=== PATIENT | female | born 1990 ===

== ENCOUNTER 2020-12-27 12:00 | Inpatient (IN) | payer OTHER ==
[~2020-12-27] VITALS: Ht 154.9 cm; Wt 79.4 kg
[2021-01-07] MEDS ORDERED: PRENATABS RX T1 EACH PO (23:16)
== END 2021-01-10 11:28 | disposition home or self-care (01) | DRG 768 ==
LOC: SURG-SUITE 01-07 15:05 → LDR 01-07 15:05 → SURG-SUITE 01-08 12:02 → SURH 01-11 12:00
PROVIDERS: ADMIT Obstetrics & Gynecology Maternal & Fetal Medicine; ATTEND Obstetrics & Gynecology Maternal & Fetal Medicine
PROC: 3E0P7VZ Introduction of Hormone into Female Reproductive, Via Natural or Artificial Opening (ICD-10-PCS; 2021-01-07)
PROC: 4A1HXFZ Monitoring of Products of Conception, Cardiac Rhythm, External Approach (ICD-10-PCS; 2021-01-07)
PROC: 10E0XZZ Delivery of Products of Conception, External Approach (ICD-10-PCS; principal; 2021-01-08)
PROC: 0DQP0ZZ Repair Rectum, Open Approach (ICD-10-PCS; 2021-01-08)
PROC: 0W8NXZZ Division of Female Perineum, External Approach (ICD-10-PCS; 2021-01-08)
PROC: 10907ZC Drainage of Amniotic Fluid, Therapeutic from Products of Conception, Via Natural or Artificial Opening (ICD-10-PCS; 2021-01-08)
PROC: 3E033VJ Introduction of Other Hormone into Peripheral Vein, Percutaneous Approach (ICD-10-PCS; 2021-01-08)
DX: O36.63X0 Maternal care for excessive fetal growth, third trimester, not applicable or unspecified (principal); Z37.0 Single live birth; O70.3 Fourth degree perineal laceration during delivery; O99.824 Streptococcus B carrier state complicating childbirth; Z3A.39 39 weeks gestation of pregnancy

== ENCOUNTER 2020-12-30 10:57 | Outpatient (CLI) | payer OTHER | END 2020-12-30 11:58 | disposition home or self-care (01) | LOC: NST 10:57 | PROVIDERS: ATTEND Obstetrics & Gynecology | DX: Z34.83 Encounter for supervision of other normal pregnancy, third trimester (principal) ==

== ENCOUNTER 2021-01-03 14:27 | Outpatient (CLI) | payer OTHER | END 2021-01-03 15:44 | disposition home or self-care (01) | LOC: NST 14:27 | PROVIDERS: ATTEND Obstetrics & Gynecology | DX: Z34.83 Encounter for supervision of other normal pregnancy, third trimester (principal) ==

== ENCOUNTER 2022-11-18 11:51 | Inpatient (IN) | payer OTHER ==
[~2022-11-18] VITALS: Ht 154.9 cm; Wt 82.1 kg
[~2022-11-18 11:51] MED LIST: PRENATABS RX T1 EACH PO
== END 2022-12-04 13:22 | disposition home or self-care (01) | DRG 807 ==
LOC: LDR 12-02 08:14 → OB/GYN 12-02 18:10
PROVIDERS: Obstetrics & Gynecology Gynecology; ADMIT Obstetrics & Gynecology; ATTEND Obstetrics & Gynecology
PROC: 10E0XZZ Delivery of Products of Conception, External Approach (ICD-10-PCS; principal; 2022-12-02)
PROC: 0W8NXZZ Division of Female Perineum, External Approach (ICD-10-PCS; 2022-12-02)
PROC: 4A1HXCZ Monitoring of Products of Conception, Cardiac Rate, External Approach (ICD-10-PCS; 2022-12-02)
DX: O80 Encounter for full-term uncomplicated delivery (principal); Z37.0 Single live birth; Z3A.39 39 weeks gestation of pregnancy; Z20.822 Contact with and (suspected) exposure to COVID-19

== ENCOUNTER 2022-11-27 09:51 | Outpatient (CLI) | payer OTHER | END 2022-11-27 11:55 | disposition home or self-care (01) | LOC: NST 09:51 | PROVIDERS: ATTEND Obstetrics & Gynecology Maternal & Fetal Medicine | DX: Z34.83 Encounter for supervision of other normal pregnancy, third trimester (principal) ==